=== PATIENT | female | born 1970 ===

== ENCOUNTER 2020-11-03 00:49 | Inpatient (IN) | payer SELFPAY ==
[~2020-11-03] VITALS: Ht 167.7 cm; Wt 132.2 kg
[2020-11-03] MEDS ORDERED: PROMETHAZINE INJ 25 MG/ML (PHENERGAN) AMP IM PRN (01:15)
[2020-11-03] MEDS ORDERED: ACETAMINOPHEN 325 MG TABLET PO PRN (01:15)
[2020-11-03] MEDS: fentaNYL INJ 100 MCG/2 ML AMP IVP PRN ×3 (02:47→17:27)
[2020-11-03] MEDS: NS IV 1000 ML 1,000 ML IV SCH ×2 (02:47→10:31)
[2020-11-03] MEDS ORDERED: FLU QUADRIvalent (3YOA+) 60 mcg/0.5 ml 2021-22(AFLURIA) IM ONE (06:45)
[2020-11-03] MEDS ORDERED: CATHETER FLUSH 10 ML SYR IV PRN (06:45)
[2020-11-03 08:09] LABS: BASOPHILS # (AUTO) 0.1 10^3/uL (0.0-0.1); BASOPHILS % (AUTO) 0 % (0-10); EOSINOPHILS # (AUTO) 0.1 10^3/uL (0.0-0.3); EOSINOPHILS % (AUTO) 0 % (0-10); HEMATOCRIT 44 % (35-52); HEMOGLOBIN 14.3 g/dL (11.5-16.0); LYMPHOCYTES # (AUTO) 0.8 10^3/uL (1.0-4.0); LYMPHOCYTES % (AUTO) 5 % (12-44); MEAN CORPUSCULAR HEMOGLOBIN 31 pg (25-34); MEAN CORPUSCULAR HGB CONC 32 g/dL (32-36); MEAN CORPUSCULAR VOLUME 97 fL (80-99); MEAN PLATELET VOLUME 10.3 fL (9.0-12.2); MONOCYTES # (AUTO) 0.6 10^3/uL (0.0-1.0); MONOCYTES % (AUTO) 3 % (0-12); NEUTROPHILS # (AUTO) 16.9 10^3/uL (1.8-7.8); NEUTROPHILS % (AUTO) 91 % (42-75); PLATELET COUNT 213 10^3/uL (130-400); WHITE BLOOD COUNT 18.6 10^3/uL (4.3-11.0)
[2020-11-03 08:22] LABS: CALCIUM 8.7 MG/DL (8.5-10.1); CREATININE SERUM 1.31 MG/DL (0.60-1.30); POTASSIUM 4.7 MMOL/L (3.6-5.0)
[2020-11-03 08:35] LABS: BAND NEUTROPHILS 11 %; LYMPHOCYTES % (MANUAL) 6 %; METAMYELOCYTES % 1 %; MONOCYTES % (MANUAL) 1 %; NEUTROPHILS % (MANUAL) 81 %; RBC MORPH NORMAL
[2020-11-03] MEDS ORDERED: cefTRIAXone 2,000 MG in WATER (STERILE) FOR INJECTION 20 ML IV SCH (10:00)
[2020-11-03] MEDS ORDERED: MELA5TAB14 PO (11:16)
[2020-11-03] MEDS ORDERED: ACET-2267 PO (11:16)
--- NOTE | 2020-11-03 12:46 | Discharge Summary ---
Discharge Summary Hospital Course Problems/Dx: (1) Kidney calculi Status: Acute (2) Hydronephrosis Status: Acute Qualifiers: Qualified Codes: N13.2 - Hydronephrosis with renal and ureteral calculous obstruction (3) Sepsis Status: Acute (4) Pyelonephritis Status: Acute Hospital Course Date of Admission: Nov 03, 2020 at 02:19 Admission Diagnosis : Sepsis due to pyelonephritis, obstructing ureteral stone with hydronephrosis Family Physician/Provider: Date of Discharge: 11/03/20 Discharge Diagnosis: Sepsis due to pyelonephritis, obstructing ureteral stone with hydronephrosis Hospital Course: Tracy Rodriguez is a 49-year-old female who was admitted with obstructing ureteral stone with hydronephrosis and sepsis due to pyelonephritis. She was started on IV antibiotics and fluids. Urology was unavailable and she was transferred to [facility] for urology evaluation and intervention. She was discharged in stable condition. Labs and Pending Lab Test: Laboratory Tests 11/03/20 07:56: White Blood Count 18.6H, Red Blood Count 4.57, Hemoglobin 14.3, Hematocrit 44, Mean Corpuscular Volume 97, Mean Corpuscular Hemoglobin 31, Mean Corpuscular Hemoglobin Concent 32, Red Cell Distribution Width 13.2, Platelet Count 213, Mean Platelet Volume 10.3, Immature Granulocyte % (Auto) 1, Neutrophils (%) (Auto) 91H, Lymphocytes (%) (Auto) 5L, Monocytes (%) (Auto) 3, Eosinophils (%) (Auto) 0, Basophils (%) (Auto) 0, Neutrophils # (Auto) 16.9H, Lymphocytes # (Auto) 0.8L, Monocytes # (Auto) 0.6, Eosinophils # (Auto) 0.1, Basophils # (Auto) 0.1, Immature Granulocyte # (Auto) 0.2H, Neutrophils % (Manual) 81, Lymphocytes % (Manual) 6, Monocytes % (Manual) 1, Metamyelocytes % 1, Band Neutrophils 11, Blood Morphology Comment NORMAL, Sodium Level 135, Potassium Level 4.7, Chloride Level 104, Carbon Dioxide Level 21, Anion Gap 10, Blood Urea Nitrogen 17, Creatinine 1.31H, Estimat Glomerular Filtration Rate 43, BUN/Creatinine Ratio 13, Glucose Level 178H, Lactic Acid Level 1.53, Calcium Level 8.7 Home Meds Active Reported Melatonin 5 Mg Tablet 5 Mg PO HS PRN Tylenol Extra Strength (Acetaminophen) 500 Mg Tablet 1,000 Mg PO Q8H PRN Assessment/Pt Instructions Patient transferred to [facility] for urology evaluation. Discharge Planning: <30 minutes discharge planning Discharge Instructions Discharge Diet: No Restrictions Activity as Tolerated: Yes Discharge Physical Examination Vital Signs Vital Signs Date Time Temp Pulse Resp B/P (MAP) Pulse Ox O2 Delivery O2 Flow Rate FiO2 11/03/20 08:00 36.8 107 20 132/76 94 3.50 11/03/20 06:20 Nasal Cannula General Appearance: No Apparent Distress, Obese HEENT: PERRL/EOMI, Pharynx Normal Respiratory: Lungs Clear, Normal Breath Sounds, No Respiratory Distress Cardiovascular: No Murmur, Tachycardia Gastrointestinal: Normal Bowel Sounds, Soft, Tenderness, Other (Right CVA tenderness) Extremity: Normal Inspection, Non Tender, No Pedal Edema Skin: Normal Color, Warm/Dry Neurologic/Psychiatric: Alert, Oriented x3, No Motor/Sensory Deficits, Normal Mood/Affect Allergies: Coded Allergies: No Known Drug Allergies (Unverified , 11/03/20) Discharge Summary Date of Admission Nov 03, 2020 at 02:19 Date of Discharge Discharge Date: Nov 03, 2020 Discharge Time: 12:43 Admission Diagnosis Sepsis due to pyelonephritis, obstructing ureteral stone with hydronephrosis Discharge Diagnosis (1) Kidney calculi Status: Acute (2) Hydronephrosis Status: Acute Qualifiers: Qualified Codes: N13.2 - Hydronephrosis with renal and ureteral calculous obstruction (3) Sepsis Status: Acute (4) Pyelonephritis Status: Acute CATHRYN FIELDS MD Nov 03, 2020 12:46
[2020-11-03] MEDS ORDERED: cefTRIAXone 1,000 MG in WATER (STERILE) FOR INJECTION 10 ML IV SCH (22:00)
[2020-11-04] MEDS ORDERED: FLU QUADRIvalent (3YOA+) 60 mcg/0.5 ml 2021-22(AFLURIA) IM ONE (09:00)
== END 2020-11-03 17:25 | disposition short-term general hospital (02) | DRG 872 ==
LOC: CSD 02:19
PROVIDERS: ADMIT Internal Medicine; ATTEND Internal Medicine
DX: A41.9 Sepsis, unspecified organism (principal); N13.6 Pyonephrosis
CPT/HCPCS: 36415; 80048; 83605; 85007; 85027